=== PATIENT | female | born 1990 | race Caucasian/White ===

== ENCOUNTER 2017-07-07 22:27 | Inpatient (IN) | payer SELFPAY ==
[~2017-07-07] VITALS: Ht 168.9 cm; Wt 99.0 kg
[2017-07-07 23:05] VITALS: BP 147/91
[2017-07-08] VITALS (26 sets, daily range): BP systolic 119–150; BP diastolic 61–95
[2017-07-08 00:19] LABS: AMPHETAMINE NEGATIVE (500 ng/mL); BARBITURATES NEGATIVE (200 ng/mL); BENZODIAZEPINES PRESUMPTIVE POSITIVE (150 ng/mL); BUPRENORPHINE NEGATIVE (10 ng/mL); COCAINE PRESUMPTIVE POSITIVE (150 ng/mL); METHADONE NEGATIVE (200 ng/mL); METHAMPHETAMINE NEGATIVE (500 ng/mL); OPIATES (MORPHINE) PRESUMPTIVE POSITIVE (100 ng/mL); OXYCODONE NEGATIVE (100 ng/mL); PHENCYCLIDINE NEGATIVE (25 ng/mL); PROPOXYPHENE NEGATIVE (300 ng/mL); THC CANNABINOIDS NEGATIVE (50 ng/mL); TRICYCLIC ANTIDEPRESSANTS NEGATIVE (300 ng/mL)
[2017-07-08 01:01] LABS: BASOPHIL (%) 0.3 % (0-1); EOSINOPHIL (%) 0.2 % (0-5); HEMATOCRIT 32.9 % (36.0-46.0); HEMOGLOBIN 11.1 G/DL (11.9-15.5); IMMATURE GRANULOCYTE (%) 0.5 % (0.0-0.7); LYMPHOCYTE (%) 24.6 % (15-42); LYMPHOCYTE COUNT 3.8 K/uL (1.0-2.8); MCH 30.2 PG (29.0-34.0); MCHC 33.7 G/DL (30.0-36.0); MCV 89.4 FL (83-99); MONOCYTE (%) 6.4 % (3-12); NEUTROPHIL COUNT 10.4 K/uL (1.8-6.4); PLATELET COUNT 401 K/uL (156-360); RBC DIS.WIDTH-CV 13.7 % (11.8-14.6); RBC DIS.WIDTH-SD 44.8 % (39-53); RED BLOOD COUNT 3.68 M/uL (3.80-5.20); WHITE BLOOD COUNT 15.3 K/uL (4.1-10.2)
[2017-07-08 01:10] LABS: ALBUMIN 3.2 g/dL (3.2-4.8); CHLORIDE 109 mEq/L (99-109); POTASSIUM 3.4 mEq/L (3.7-5.4); SODIUM 138 mEq/L (136-147)
[2017-07-08 01:12] LABS: GLUCOSE 99 mg/dL (70-99); TOTAL PROTEIN 6.9 g/dL (6.4-8.3)
[2017-07-08 01:14] LABS: TOTAL BILIRUBIN 0.2 mg/dL (0.0-1.0)
[2017-07-08 01:16] LABS: GROUP B STREP POSITIVE (NEGATIVE)
[2017-07-08 01:16] LABS: ALKALINE PHOSPHATASE 143 IU/L (3-129); CREATININE 0.5 mg/dL (0.6-1.3); GFR ESTIMATE (CALCULATED) > 59 mL/min/
[2017-07-08 01:17] LABS: UREA NITROGEN (BUN) 2 mg/dL (9-23)
[2017-07-08 01:18] LABS: AST (GOT) 9 IU/L (2-34)
[2017-07-08 01:19] LABS: ALT (GPT) 6 IU/L (3-49); URIC ACID 3.4 mg/dL (3.1-9.2)
[2017-07-08 01:21] LABS: BENZODIAZEPINES, URINE SCREEN Negative (200 ng/mL)
[2017-07-08 01:54] LABS: ANTI-HIV (AIDS STAT TEST) NONREACTIVE
[2017-07-08 02:06] LABS: LACTATE DEHYDROGENASE 153 IU/L (20-246)
[2017-07-08 02:18] LABS: SOURCE URINE
[2017-07-08 02:42] LABS: APPEARANCE CLOUDY ((CLEAR)); BILIRUBIN NEGATIVE; BLOOD NEGATIVE; COLOR YELLOW ((YELLOW)); GLUCOSE (STRIP) NEGATIVE; KETONES NEGATIVE; LEUKOCYTES NEGATIVE; NITRITE NEGATIVE; PROTEIN (STRIP) NEGATIVE; SPECIFIC GRAVITY 1.009 (1.000-1.030); UROBILINOGEN 0.2 MG/DL (0.2-1.0)
[2017-07-08 03:13] LABS: AMORPHOUS PHOSPHATE CRYSTALS 3+; BACTERIA 2+ /HPF; EPITHELIAL CELLS RARE /HPF; FINE GRANULAR CASTS 0-5 /LPF; MUCUS NONE SEEN /LPF; RED BLOOD CELLS NONE SEEN /HPF (0-5); UCUL ADDED? YES; WHITE BLOOD CELLS 0-5 /HPF (0-5)
[2017-07-08 04:09] LABS: CANDIDA DNA PROBE NEGATIVE; GARDNERELLA DNA PROBE POSITIVE; TRICHOMONAS DNA PROBE NEGATIVE
[2017-07-08 09:01] LABS: TREPONEMA ANTIBODY NEGATIVE (NEGATIVE)
[2017-07-08 10:25] LABS: HEMOGLOBIN A1c (GLYCOHEMOGLOB) 5.3 % (Below 5.7)
[2017-07-08 11:29] LABS: ANTI-HEPATITIS A VIRUS (IGM) Nonreactive; HEPATITIS B SURFACE ANTIGEN Nonreactive; HEPATITIS C ANTIBODY Nonreactive
[2017-07-08 11:30] LABS: ANTI-HEPATITIS B CORE (IGM) Nonreactive
[2017-07-08 11:31] LABS: HIV-1/2 AB/AG COMBO Nonreactive
[2017-07-08 12:24] LABS: CHLAMYDIA TRACHOMATIS NEGATIVE; NEISSERIA GONORRHOEAE NEGATIVE
[2017-07-09 06:15] LABS: BASOPHIL (%) 0.2 % (0-1); EOSINOPHIL (%) 0.5 % (0-5); EOSINOPHIL COUNT 0.1 K/uL (0-0.3); HEMATOCRIT 31.3 % (36.0-46.0); HEMOGLOBIN 10.4 G/DL (11.9-15.5); IMMATURE GRANULOCYTE (%) 0.5 % (0.0-0.7); LYMPHOCYTE (%) 28.9 % (15-42); LYMPHOCYTE COUNT 4.9 K/uL (1.0-2.8); MCH 30.2 PG (29.0-34.0); MCHC 33.2 G/DL (30.0-36.0); MONOCYTE (%) 5.9 % (3-12); NEUTROPHIL COUNT 10.9 K/uL (1.8-6.4); PLATELET COUNT 353 K/uL (156-360); RBC DIS.WIDTH-SD 45.9 % (39-53); RED BLOOD COUNT 3.44 M/uL (3.80-5.20)
[2017-07-09 08:19] VITALS: BP 130/87
[2017-07-09] MEDS ORDERED: FERROCITE324 MG PO (09:23)
[2017-07-09] MEDS ORDERED: IBUPROFEN800 MG PO (09:24)
== END 2017-07-09 14:20 | disposition home or self-care (01) | DRG 775 ==
LOC: LDRP-OP 22:27 → 2WEST 22:28
PROVIDERS: Advanced Practice Midwife; Obstetrics & Gynecology
DX: O63.0 Prolonged first stage (of labor) (principal); O99.02 Anemia complicating childbirth; D62 Acute posthemorrhagic anemia; O77.0 Labor and delivery complicated by meconium in amniotic fluid; O34.219 Maternal care for unspecified type scar from previous cesarean delivery; O99.824 Streptococcus B carrier state complicating childbirth; O99.324 Drug use complicating childbirth; F11.10 Opioid abuse, uncomplicated; F14.90 Cocaine use, unspecified, uncomplicated; O99.334 Smoking (tobacco) complicating childbirth; F17.200 Nicotine dependence, unspecified, uncomplicated; Z3A.37 37 weeks gestation of pregnancy; Z37.0 Single live birth
CPT/HCPCS: 76805; 80053; 80074; 81003; 82570; 83036; 83615; 84156; 84550; 84999; 85025; 86762; 86780; 86900; 86901; 87077; 87081; 87086; 87186; 87389; 87480; 87491; 87510; 87591; 87653; 87660; 88307; C1755; G0378; J2540; J3010; J7120